=== PATIENT | female | born 1945 | race Hispanic/Latino ===

== ENCOUNTER 2024-08-03 10:32 | Inpatient (IN) | payer SELFPAY ==
[2024-08-03] MEDS ORDERED: CEFTRIAXONE 1000 MG/VIAL ONE (10:47)
[2024-08-03] MEDS ORDERED: NA CHLORIDE 0.9% 1,000 ML ONE (10:47)
[2024-08-03 11:13] LABS: Absolute Eosinophils 0.1 K/uL (0-0.5); Absolute Lymphocytes (CBC) 1.2 K/uL (0.7-4.9); Absolute Monocytes 0.6 K/uL (0.1-1.3); Absolute Neutrophil 6.9 K/uL (1.8-8.0); Basophils % 0.6 % (0-1.3); Eosinophils % 0.8 % (0-4.4); Hematocrit 40.5 % (36.0-45.0); Hemoglobin 12.7 g/dL (12.0-15.0); Lymphocytes % 13.1 % (15.3-44.8); MCH 24.6 pg (27.0-35.0); MCHC 31.4 g/dL (32.0-36.0); MCV 78.3 fL (80-100); Monocytes % 7.2 % (3.3-12.3); Neutrophils % 78.3 % (41.7-73.7); Platelets 233 thou/uL (152-406); RBC Red Blood Cell Count 5.17 M/uL (3.86-4.86); Red Cell Distribution Width 17.1 % (12.1-15.2)
[2024-08-03 11:19] LABS: PTT, Activated Partial Thromb 29.8 SECONDS (24.3-36.9); Protime INR 1.07
--- NOTE | 2024-08-03 11:19 | RAD REPORT ---
Procedure: Chest Single View HISTORY: Chest pain COMPARISON: none FINDINGS: Moderate bilateral pulmonary opacities. Small bilateral pleural effusions. Heart is markedly enlarged. Pacemaker leads in place. Post surgical changes involving the chest. IMPRESSION: Moderate CHF
[2024-08-03 11:30] LABS: Albumin 3.1 g/dL (3.4-5.0); Albumin/Globulin Ratio 0.8 (1.1-1.8); Bilirubin Total 0.5 mg/dL (0.2-1.0); Globulin 3.8 g/dL (2.3-3.5); Protein, Total 6.9 g/dL (6.4-8.2)
[2024-08-03 11:34] LABS: SARS-CoV-2 Antigen CONTROL BLUE LINE VIS/BG OK; SARS-CoV-2 Antigen Rapid Res Negative (Negative)
--- NOTE | 2024-08-03 11:52 | EDPHYS ---
Physician Documentation [facility] Name: Kallie Kurtz Age: 79 yrs Sex: Female : 1945 Arrival Date: 08/03/2024 Time: 10:32 Bed 3 Private MD: ED Physician Kirk Mejia HPI: 08/03 10:37 This 79 yrs old Female presents to ER via Unassigned with complaints of ec2 Shortness Of Breath. 10:37 Patient arrives today for evaluation of shortness of breath and feeling unwell. Patient ec2 been feeling short of breath ongoing for several days also with some lightheadedness. Patient with some occasional cough. History of hypertension, CHF, arrhythmia. Patient is on Lasix as well as digoxin however has not taken her medications in multiple weeks.. Historical: - Allergies: 10:40 No Known Allergies; bp - Home Meds: 10:40 lisinopril 20 mg Oral tablet 1 tab daily [Active]; amlodipine 5 mg tablet 1 tab daily bp [Active]; simvastatin 40 mg Oral tablet 1 tab daily [Active]; Lasix 20 mg Oral tablet 1 tab daily [Active]; digoxin 125 mcg (0.125 mg) Oral tablet 1 tab daily [Active]; simethicone 180 mg Oral capsule 1 cap daily [Active]; omeprazole 20 mg Oral capsule,delayed release (e.c.) daily [Active]; levothyroxine 112 mcg tablet 1 tab daily [Active]; - PMHx: 10:40 Hypothyroidism; Hypercholesterolemia; Hypertensive disorder; bp - PSHx: 10:40 Coronary artery bypass graft; bp - Immunization history:: Adult Immunizations up to date. - Infectious Disease History:: Denies. - Social history:: Smoking status: Patient reports the use of cigarette tobacco products, unknown amount. ROS: 10:37 Constitutional: as per hpi ec2 Exam: 10:37 Constitutional: GEN: NAD Head: atraumatic Eyes: EOMI Ears: External ears are ec2 normal. CV: regular rate, no significant lower extremity edema noted. LUNGS: no respiratory distress, no wheezes, no rales, no rhonchi ABD: non-distended SKIN: no evidence of rashes MSK: no evidence of trauma Vital Signs: 10:38 BP 150 / 90; Pulse 110; Resp 20; Temp 98; Pulse Ox 96% ; bp 11:47 BP 137 / 97; Pulse 106; Resp 16; Pulse Ox 97% ; bp 12:37 BP 155 / 97; Pulse 108; Resp 24; Pulse Ox 94% on 4 lpm NC; hb MDM: 10:35 Medical Screening Exam initiated ec2 10:37 Data reviewed: vital signs. ED course: Patient arrives today for evaluation of ec2 shortness of breath. Examination remarkable for tachycardic individual was otherwise in no acute respiratory distress. Will obtain lab work, EKG, chest x-ray empirically treat with ceftriaxone. Differential include processes such as volume overload, pneumonia, electrolyte disturbances, anemia. 11:01 ED course: EKG independently reviewed and interpreted by me, shows ventricularly paced ec2 rhythm with a rate of 106.. 11:42 ED course: CBC is reassuring. Metabolic profile with appropriate electrolytes. Coag ec2 profile is nonactionable. Chest x-ray shows moderate CHF. . 11:54 ED course: Will stop IV fluids, lactic acid within normal ranges, chest x-ray shows ec2 volume overload. Will admit for diuresis. Gave patient Lasix, discussed with hospitalist, pending admission.. 10 10:35 Order name: Blood Culture Adult (2) ec2 08/03 10:35 Order name: CBC with Diff; Complete Time: 11:42 ec2 08/03 10:35 Order name: CMP; Complete Time: 11:42 ec2 08/03 10:35 Order name: Lactate w/ 2H reflex if indic.; Complete Time: 11:51 ec2 08/03 10:35 Order name: Protime (+inr); Complete Time: 11:42 ec2 08/03 10:35 Order name: Ptt, Activated; Complete Time: 11:42 ec2 08/03 10:35 Order name: Influenza Screen (a \T\ B); Complete Time: 11:51 ec2 08/03 10:35 Order name: SARS RAPID; Complete Time: 11:42 ec2 08/03 11:52 Order name: BNP; Complete Time: 12:23 ec2 08/03 13:04 Order name: T4 Free EDMS 08/03 13:04 Order name: Thyroid Stimulating Hormone EDMS 08/03 13:04 Order name: Basic Metabolic Panel EDMS 08/03 13:04 Order name: Basic Metabolic Panel EDMS 08/03 13:04 Order name: Basic Metabolic Panel EDMS 08/03 13:04 Order name: Basic Metabolic Panel EDMS 08/03 13:04 Order name: Basic Metabolic Panel EDMS 08/03 13:04 Order name: Basic Metabolic Panel EDMS 08/03 13:04 Order name: Basic Metabolic Panel EDMS 08/03 13:04 Order name: Basic Metabolic Panel EDMS 08/03 13:04 Order name: CBC with Automated Diff EDMS 08/03 13:04 Order name: Lipid Profile EDMS 08/03 13:04 Order name: Lipid Profile EDMS 08/03 13:04 Order name: Magnesium EDMS 08/03 13:04 Order name: Magnesium EDMS 08/03 13:04 Order name: Magnesium EDMS 08/03 13:04 Order name: Magnesium EDMS 08/03 13:04 Order name: CBC with Automated Diff EDMS 08/03 13:04 Order name: CBC with Automated Diff EDMS 08/03 13:04 Order name: CBC with Automated Diff EDMS 08/03 13:04 Order name: CBC with Automated Diff EDMS 08/03 13:04 Order name: CBC with Automated Diff EDMS 08/03 13:04 Order name: CBC with Automated Diff EDMS 08/03 13:04 Order name: CBC with Automated Diff EDMS 08/03 13:04 Order name: Urinalysis w/ reflexes EDMS 08/03 13:05 Order name: Magnesium EDMS 08/03 13:05 Order name: Magnesium EDMS 08/03 13:05 Order name: Magnesium EDMS 08/03 13:05 Order name: Magnesium EDMS 08/03 13:05 Order name: Phosphorus EDMS 08/03 13:05 Order name: Phosphorus EDMS 08/03 13:05 Order name: Phosphorus EDMS 08/03 13:05 Order name: Phosphorus EDMS 08/03 13:05 Order name: Phosphorus EDMS 08/03 13:05 Order name: Phosphorus EDMS 08/03 13:05 Order name: Phosphorus EDMS 08/03 13:05 Order name: Phosphorus EDMS 08/03 13:05 Order name: Troponin High Sensitivity EDMS 08/03 13:05 Order name: Troponin High Sensitivity EDMS 08/03 13:05 Order name: Troponin High Sensitivity EDMS 08/03 13:05 Order name: Troponin High Sensitivity EDMS 08/03 10:35 Order name: Chest Single View XRAY; Complete Time: 11:42 ec2 08/03 13:04 Order name: Echo with Doppler EDMS 08/03 10:35 Order name: Accucheck; Complete Time: 10:57 ec2 08/03 10:35 Order name: Cardiac monitoring; Complete Time: 10:57 ec2 08/03 10:35 Order name: EKG - Nurse/Tech; Complete Time: 10:57 ec2 08/03 10:35 Order name: IV Saline Lock - Large Bore; Complete Time: 10:57 ec2 08/03 10:35 Order name: Labs collected and sent; Complete Time: 10:57 ec2 08/03 10:35 Order name: O2 Per Protocol; Complete Time: 10:57 ec2 08/03 10:35 Order name: O2 Sat Monitoring; Complete Time: 10:57 ec2 08/03 10:35 Order name: Vital Signs; Complete Time: 10:57 ec2 08/03 11:53 Order name: Misc. Order: stop IVF; Complete Time: 12:00 ec2 Administered Medications: 11:00 Drug: Rocephin IV 1 grams IV at calculated rate once; Given slow IV push per pharmacy bp instructions Route: IV; Rate: calculated rate; Site: right forearm; 12:00 Follow up: IV Status: Completed infusion bp 11:00 Drug: NS 0.9% IV 1000 ml IV at 1000 ml once; to be given as a bolus over 60 minutes bp Route: IV; Rate: 1000 ml; Site: right forearm; 12:00 Follow up: IV Status: Completed infusion bp 12:00 Drug: Furosemide IVP 40 mg IVP once; give over 2 minutes Route: IVP; Site: right bp forearm; 12:00 Follow up: Response: No adverse reaction bp Disposition Summary: 08/03/24 11:51 Hospitalization Ordered Notes: Hospitalization Status: Inpatient Admission ec2 Provider: Oracio Holloway ecJeremy Condition: Stable ec2 Problem: new ec2 Symptoms: have improved ec2 Bed/Room Type: Standard ec2 Location: Telemetry/MedSurg (Inpatient)(08/03/24 16:39) bd Room Assignment: [facility](08/03/24 16:39) bd Diagnosis - Heart failure, unspecified ec2 Forms: - Medication Reconciliation Form ec2 - SBAR form ec2 - Leadership Thank You Letter ec2 Signatures: Dispatcher [employer] EDMS Patti peters bd Eligio Perla, GALEN RN Kirk Young MD MD ec2 Corrections: (The following items were deleted from the chart) 10:36 10:36 BLOOD CULTURE*+BA.LAB.BRZ ordered. EDMS EDMS 10:36 10:36 CBC+H.LAB.BRZ ordered. EDMS EDMS 10:36 10:36 COMPREHENSIVE METABOLIC PANEL+C.LAB.BRZ ordered. EDMS EDMS 10:36 10:36 LACTATE+C.LAB.BRZ ordered. EDMS EDMS 10:36 10:36 PROTIME (+INR)+COAG.LAB.BRZ ordered. EDMS EDMS 10:36 10:36 PTT, ACTIVATED+COAG.LAB.BRZ ordered. EDMS EDMS 10:36 10:36 Influenza Screen (A \T\ B)+BA.LAB.BRZ ordered. EDMS EDMS 10:36 10:36 SARS-COV-2 Antigen Rapid+I.LAB.BRZ ordered. EDMS EDMS 10:36 10:36 Chest Single View+RAD.RAD.BRZ ordered. EDMS EDMS 14:03 11:51 Telemetry/MedSurg (Inpatient) ec2 bd 14:03 11:51 ec2 bd 16:39 14:03 BR ER HOLD bd bd 16:39 14:03 ERHOLD- bd bd
--- NOTE | 2024-08-03 11:52 | ER ---
Nurse's Notes [facility] Name: Kallie Kurtz Age: 79 yrs Sex: Female : 1945 Arrival Date: 08/03/2024 Time: 10:32 Bed 3 Private MD: Diagnosis: Heart failure, unspecified Presentation: 08/03 10:38 Chief complaint: EMS states: SENT FROM [facility] FOR SOB/CP. Coronavirus bp screen: At this time, the client does not indicate any symptoms associated with coronavirus-19. Ebola Screen: No symptoms or risks identified at this time. Initial Sepsis Screen: Does the patient meet any 2 criteria? HR > 90 bpm. No. Patient's initial sepsis screen is negative. Does the patient have a suspected source of infection? No. Patient's initial sepsis screen is negative. Risk Assessment: Do you want to hurt yourself or someone else? Patient reports no desire to harm self or others. Onset of symptoms is unknown. Care prior to arrival: Medication(s) given: ASA, 81 mg, x 1. 10:38 Method Of Arrival: EMS: [facility] bp 10:38 Acuity: DAVID 3 bp Triage Assessment: 10:40 General: Appears in no apparent distress. General: Behavior is cooperative, appropriate bp for age, anxious. Pain: Complains of pain in chest. EENT: No deficits noted. Neuro: No deficits noted. Cardiovascular: Rhythm is sinus tachycardia. Respiratory: Reports shortness of breath Breath sounds are clear bilaterally. Onset: The symptoms/episode began/occurred at an unknown time. the patient has mild shortness of breath. GI: No signs and/or symptoms were reported involving the gastrointestinal system. : No signs and/or symptoms were reported regarding the genitourinary system. Derm: No deficits noted. Musculoskeletal: No deficits noted. Historical: - Allergies: 10:40 No Known Allergies; bp - Home Meds: 10:40 lisinopril 20 mg Oral tablet 1 tab daily [Active]; amlodipine 5 mg tablet 1 tab daily bp [Active]; simvastatin 40 mg Oral tablet 1 tab daily [Active]; Lasix 20 mg Oral tablet 1 tab daily [Active]; digoxin 125 mcg (0.125 mg) Oral tablet 1 tab daily [Active]; simethicone 180 mg Oral capsule 1 cap daily [Active]; omeprazole 20 mg Oral capsule,delayed release (e.c.) daily [Active]; levothyroxine 112 mcg tablet 1 tab daily [Active]; - PMHx: 10:40 Hypothyroidism; Hypercholesterolemia; Hypertensive disorder; bp - PSHx: 10:40 Coronary artery bypass graft; bp - Immunization history:: Adult Immunizations up to date. - Infectious Disease History:: Denies. - Social history:: Smoking status: Patient reports the use of cigarette tobacco products, unknown amount. Screenin:00 [facility] ED Fall Risk Assessment (Adult) History of falling in the last 3 months, bp including since admission No falls in past 3 months (0 pts) Confusion or Disorientation No (0 pts) Intoxicated or Sedated No (0 pts) Impaired Gait No (0 pts) Mobility Assist Device Used No (0 pt) Altered Elimination No (0 pt) Score/Fall Risk Level 0 - 2 = Low Risk. Abuse screen: Denies threats or abuse. Denies injuries from another. Nutritional screening: No deficits noted. Tuberculosis screening: No symptoms or risk factors identified. Assessment: 11:30 General: Appears in no apparent distress. Behavior is cooperative, appropriate for age, bp anxious. 11:47 Reassessment: Patient appears in no apparent distress at this time. Patient is alert, bp oriented x 3, equal unlabored respirations, skin warm/dry/pink. Cardiovascular: Rhythm is Respiratory: Airway is patent Respiratory effort is even, unlabored. 12:36 Reassessment: Patient appears in no apparent distress at this time. Patient and/or hb family updated on plan of care and expected duration. Pain level reassessed. Patient is alert, oriented x 3, equal unlabored respirations, skin warm/dry/pink. Vital Signs: 10:38 BP 150 / 90; Pulse 110; Resp 20; Temp 98; Pulse Ox 96% ; bp 11:47 BP 137 / 97; Pulse 106; Resp 16; Pulse Ox 97% ; bp 12:37 BP 155 / 97; Pulse 108; Resp 24; Pulse Ox 94% on 4 lpm NC; hb ED Course: 10:34 Patient arrived in ED. ec2 10:35 Kirk Mejia MD is Attending Physician. ec2 10:36 Eligio Perla, GALEN is Primary Nurse. bp 10:39 Triage completed. bp 10:40 Arm band placed on. bp 11:00 Patient has correct armband on for positive identification. bp 11:00 Initial lab(s) drawn, by me, sent to lab. EKG done, by ED staff, reviewed by Kirk Mejia MD. Inserted saline lock: 22 gauge in right forearm, using aseptic technique. Blood collected. Flushed with 10 mL NS. 11:10 Chest Single View XRAY In Process Unspecified. EDMS 11:51 Oracio Holloway is Hospitalizing Provider. ec2 16:53 No provider procedures requiring assistance completed. Patient admitted, IV remains in bp place. Administered Medications: 11:00 Drug: Rocephin IV 1 grams IV at calculated rate once; Given slow IV push per pharmacy bp instructions Route: IV; Rate: calculated rate; Site: right forearm; 12:00 Follow up: IV Status: Completed infusion bp 11:00 Drug: NS 0.9% IV 1000 ml IV at 1000 ml once; to be given as a bolus over 60 minutes bp Route: IV; Rate: 1000 ml; Site: right forearm; 12:00 Follow up: IV Status: Completed infusion bp 12:00 Drug: Furosemide IVP 40 mg IVP once; give over 2 minutes Route: IVP; Site: right bp forearm; 12:00 Follow up: Response: No adverse reaction bp Outcome: 11:51 Decision to Hospitalize by Provider. ec2 16:52 Admitted to Tele accompanied by tech, family with patient, via wheelchair, room 207, bp with oxygen, with chart, Report called to FAX 16:52 Condition: stable 16:52 Instructed on the need for admit, 17:27 Patient left the ED. hb Signatures: Dispatcher [facility] Agnieszka Zendejas RN RN Eligio Cosme, RN Kirk Tolentino MD MD ec2 Corrections: (The following items were deleted from the chart) 12:38 12:37 BP 155 / 97; Pulse 108bpm; Resp 19bpm; Pulse Ox 92% 4 lpm Nasal Cannula; hb hb
--- NOTE | 2024-08-03 12:36 | P.HP ---
Certification for Inpatient Patient admitted to: Observation With expected LOS: <2 Midnights Patient will require the following post-hospital care: None Practitioner: I am a practitioner with admitting privileges, knowledge of patient current condition, hospital course, and medical plan of care. Services: Services provided to patient in accordance with Admission requirements found in Title 42 Section 412.3 of the Code of Federal Regulations Patient History Date of Service: 08/03/24 Reason for admission: Fluid volume overload History of Present Illness: Kallie Kurtz is a 79-year-old female with past medical history of hypothyroidism, hypercholesterolemia, hypertension, CAD status post CABG, CHF, arrhythmias, medication noncompliance who presents to the ED with chief complaint of feeling unwell with shortness of breath. She reports not taking her medication a few weeks, she currently is prescribed Lasix with digoxin. Laboratory evaluation with BNP 4868, COVID/FLU-negative Chest x-ray reports "Moderate bilateral pulmonary opacities. Small bilateral pleural effusions. Heart is markedly enlarged. Pacemaker leads in place. Post surgical changes involving the chest." Kallie will be admitted to hospitalist service for further evaluation and treatment of fluid volume overload. Allergies omeprazole Allergy (Verified 08/03/24 21:20) Nausea/Vomiting Home Medications: Amlodipine [Norvasc] 5 mg PO DAILY 08/03/24 Digoxin 125 mcg PO DAILY 08/03/24 Furosemide [Lasix] 20 mg PO DAILY 08/03/24 Levothyroxine [Synthroid] 112 mcg PO DAILY 08/03/24 Lisinopril [Zestril] 20 mg PO DAILY 08/03/24 Omeprazole 20 mg PO DAILY 08/03/24 Simethicone 180 mg PO DAILY 08/03/24 Simvastatin 40 mg PO DAILY 08/03/24 - Past Medical/Surgical History -: Hypothyroidism -: Hypercholesterolemia -: HTN -: CAD s/p CABG -: CHF -: medication noncompliance -: arrythmia -: CABG in [place] - Family History Family History: Reviewed- Non-Contributory - Social History Smoking Status: Never smoker Alcohol use: No CD- Drugs: No Review of Systems Respiratory: Shortness of Breath, SOB with Excertion Physical Examination - Physical Exam General: Alert, Oriented x3, Acute distress HEENT: Atraumatic, Normocephalic, PERRLA Neck: Supple, 2+ carotid pulse no bruit, JVD not distended Respiratory: Clear to auscultation bilaterally, Expiratory wheezes Cardiovascular: Normal pulses, Regular rate/rhythm, Normal S1 S2 Capillary refill: <2 Seconds Gastrointestinal: Normal bowel sounds Musculoskeletal: No clubbing Integumentary: No rashes Neurological: Normal speech, Normal tone - Studies Laboratory Data (last 24 hrs) 08/03/24 08/03/24 08/03/24 11:00 11:00 11:00 WBC 8.90 Hgb 12.7 Hct 40.5 Plt Count 233 PT 12.0 INR 1.07 APTT 29.8 Sodium 141 Potassium 4.0 BUN 21 H Creatinine 0.82 Glucose 184 H Total Bilirubin 0.5 AST 22 ALT 23 Alkaline Phosphatase 86 Microbiology Data (last 24 hrs): 08/03/24 11:00 Nasopharnyx Influenza Type A Antigen Screen - Final 08/03/24 11:00 Nasopharnyx Influenza Type B Antigen Screen - Final Assessment and Plan - Plan Assessment and plan Acute hypoxic respiratory distress secondary to fluid volume overload Mild Elevated troponin -Chest Xray reports "Moderate bilateral pulmonary opacities. Small bilateral pleural effusions. Heart is markedly enlarged. Pacemaker leads in place. Post surgical changes involving the chest." -BNP 4868 -Diuretics -Strict I's and O's, daily weights -Oxygen protocol -Magnesium pending Hyperglycemia -Serum glucose 184 -A1c in the AM Hypothyroidism Hypercholesterolemia Hypertension CAD status post CABG CHF Arrythmia -Continue home medication Medication noncompliance -Education concerning compliance DVT PPx Lovenox Full code LOS 2 days Discharge Plan: Home Plan to discharge in: 48 Hours - Advance Directives Does patient have a Living Will: No Does patient have a Durable POA for Healthcare: No
[2024-08-03] MEDS: FUROSEMIDE 40 MG/4 ML VIAL IV SCH (13:30)
[2024-08-03 14:34] VITALS: BMI 23.6
[2024-08-03] MEDS ORDERED: FUROSEMIDE 40 MG/4 ML VIAL ONE (15:34)
[2024-08-03] MEDS: ENOXAPARIN 40 MG/0.4 ML SQ SCH (18:22)
[2024-08-03] MEDS ORDERED: BISMUTH SUBSALICYL 262MG/15ML-240 ML BTL PO PRN (19:29)
[2024-08-03] MEDS: IPRATROPIUM BROM 0.5MG/2.5ML NEB SCH (20:13)
[2024-08-03] MEDS: ATORVASTATIN 20 MG TAB PO SCH (21:12)
[2024-08-03] MEDS: METOPROLOL TAR 25 MG TAB PO SCH (21:12)
[2024-08-04] MEDS: ACETAMINOPHEN 325 MG TABLET PO PRN (06:14)
[2024-08-04 06:35] LABS: Absolute Basophils 0.1 K/uL (0-0.5); Absolute Eosinophils 0.1 K/uL (0-0.5); Absolute Monocytes 0.9 K/uL (0.1-1.3); Absolute Neutrophil 6.8 K/uL (1.8-8.0); Basophils % 0.7 % (0-1.3); Hemoglobin 13.1 g/dL (12.0-15.0); Lymphocytes % 20.7 % (15.3-44.8); MCH 25.3 pg (27.0-35.0); MCHC 32.8 g/dL (32.0-36.0); MCV 77.1 fL (80-100); Monocytes % 9.1 % (3.3-12.3); Neutrophils % 68.5 % (41.7-73.7); Nucleated Red Blood Cells % 0.1 % (0-0); Platelets 263 thou/uL (152-406); RBC Red Blood Cell Count 5.19 M/uL (3.86-4.86); Red Cell Distribution Width 16.9 % (12.1-15.2)
[2024-08-04 07:07] LABS: Anion Gap 8.5 mEq/L (5.0-15.0); Phosphorus 2.8 mg/dL (2.5-4.9); Potassium 3.5 mEq/L (3.5-5.1); Troponin High Sensitivity 58.3 pg/mL (<58.9)
[2024-08-04 07:08] LABS: Thyroid Stimulating Hormone 16.6 uIU/mL (0.358-3.740)
[2024-08-04] MEDS: POTASSIUM CL SA 10 MEQ TAB PO SCH (08:56)
[2024-08-04] MEDS: lisinopriL 20 MG TAB PO SCH (08:56)
[2024-08-04] MEDS: PANTOPRAZOLE 40MG TABLET PO SCH (08:57)
[2024-08-04] MEDS: SIMETHICONE 180 MG PO SCH (08:57)
[2024-08-04] MEDS: FUROSEMIDE 40 MG/4 ML VIAL IV SCH (08:57)
[2024-08-04] MEDS: LEVOTHYROXINE SOD 0.112 MG TAB PO SCH (08:57)
[2024-08-04] MEDS: DIGOXIN 0.125 MG TABLET PO SCH (08:57)
[2024-08-04] MEDS: AMLODIPINE 5 MG TAB PO SCH (08:58)
[2024-08-04] MEDS ORDERED: HOME MED 1 EA UNK (Simvastatin [Simvastatin] 40 MG Tablet) PO SCH (09:00)
[2024-08-04] MEDS ORDERED: FUROSEMIDE 20 MG TABLET PO SCH (09:00)
[2024-08-04] MEDS ORDERED: HOME MED 1 EA UNK (Omeprazole [Omeprazole] 20 MG Tab.Rap.Dr) PO SCH (09:00)
[2024-08-04 09:24] VITALS: O2SAT 99
[2024-08-04 16:19] VITALS: BP 140/63; TEMP 97.1
--- NOTE | 2024-08-04 16:23 | P.DS ---
Admission Date: 08/03/24 Discharge Date: 08/04/24 Disposition: ROUTINE DISCHARGE Discharge Condition: GOOD Reason for Admission: Fluid volume overload Brief History of Present Illness: Diagnosis Acute hypoxic respiratory distress secondary to fluid volume overload Mild Elevated troponin Hyperglycemia Hypothyroidism Hypercholesterolemia Hypertension CAD status post CABG CHF Arrythmia Medication noncompliance HPI 08/03/2024 Kallie Kurtz is a 79-year-old female with past medical history of hypothyroidism, hypercholesterolemia, hypertension, CAD status post CABG, CHF, arrhythmias, medication noncompliance who presents to the ED with chief complaint of feeling unwell with shortness of breath. She reports not taking her medication a few weeks, she currently is prescribed Lasix with digoxin. Laboratory evaluation with BNP 4868, COVID/FLU-negative Chest x-ray reports "Moderate bilateral pulmonary opacities. Small bilateral pleural effusions. Heart is markedly enlarged. Pacemaker leads in place. Post surgical changes involving the chest." Kallie will be admitted to hospitalist service for further evaluation and treatment of fluid volume overload. Hospital Course: Kallie Kurtz is a pleasant 79 year old female with a past medical history significant for who was admitted to the [facility] on 08/03/24 for shortness of breath. Kallie presents with shortness of breath, Chest xray showing moderate bilateral pulmonary opacities and small bilateral pleural effusion. Lasix administered with appropriate UOP. She was returned to room air from 4 LNC. Mild troponin elevation that return to normal range, Cardiology consulted. ECHO showing severe MAC with mild regurgitation, mild tricuspid regurgitation, diastolic dysfunction. Cardiology has cleared her for discharge and she is on room air. She will need to follow up with cardiology and PCP. She has tolerated IV lasix, PO diet, and is ambulating independently. On 08/04/2024, Kallie was seen on morning rounds and deemed medically stable for discharge with family support. Kallie was discharged with instructions to schedule follow-up appointments with PCP. Kallie was provided prescriptions for potassium, Lasix, Lopressor. Physical Exam General: Alert and Oriented x3, NAD HEENT: Atraumatic, Normocephalic, PERRLA Neck: Supple, 2+ carotid pulse no bruit, JVD not distended Respiratory: Clear to auscultation bilaterally, on RA, non labored breathing Cardiovascular: Normal pulses, Regular rate/rhythm, Normal S1 S2 Capillary refill: <2 Seconds Gastrointestinal: Normal bowel sounds Musculoskeletal: No clubbing Integumentary: No rashes Neurological: Normal speech, Normal tone Vital Signs/Physical Exam: Temp Pulse Resp BP Pulse Ox 97.1 F 87 16 140/63 98 08/04/24 16:00 08/04/24 16:00 08/04/24 16:00 08/04/24 16:00 08/04/24 16:00 Laboratory Data at Discharge: WBC 9.90 thou/uL (4.3-10.9) 08/04/24 05:49 Hgb 13.1 g/dL (12.0-15.0) 08/04/24 05:49 Hct 40.0 % (36.0-45.0) 08/04/24 05:49 Plt Count 263 thou/uL (152-406) 08/04/24 05:49 PT 12.0 SECONDS (9.4-12.5) 08/03/24 11:00 INR 1.07 08/03/24 11:00 APTT 29.8 SECONDS (24.3-36.9) 08/03/24 11:00 Sodium 141 mEq/L (136-145) 08/04/24 05:49 Potassium 3.5 mEq/L (3.5-5.1) 08/04/24 05:49 BUN 17 mg/dL (7-18) 08/04/24 05:49 Creatinine 0.74 mg/dL (0.55-1.02) 08/04/24 05:49 Glucose 144 mg/dL (74-106) H 08/04/24 05:49 Phosphorus 2.8 mg/dL (2.5-4.9) 08/04/24 05:49 Magnesium 2.0 mg/dL (1.6-2.4) 08/04/24 05:49 Total Bilirubin 0.5 mg/dL (0.2-1.0) 08/03/24 11:00 AST 22 U/L (15-37) 08/03/24 11:00 ALT 23 U/L (13-56) 08/03/24 11:00 Alkaline Phosphatase 86 U/L (45-117) 08/03/24 11:00 Triglycerides 166 mg/dL (<150) H 08/04/24 05:49 Cholesterol 156 mg/dL (<200) 08/04/24 05:49 HDL Cholesterol 39 mg/dL (40-60) L 08/04/24 05:49 Cholesterol/HDL Ratio 4.00 08/04/24 05:49 Home Medications: Amlodipine [Norvasc*] 5 mg PO DAILY 08/03/24 Digoxin 125 mcg PO DAILY 08/03/24 Levothyroxine [Synthroid*] 112 mcg PO DAILY 08/03/24 Lisinopril [Zestril] 20 mg PO DAILY 08/03/24 Omeprazole 20 mg PO DAILY 08/03/24 Simethicone 180 mg PO DAILY 08/03/24 Simvastatin 40 mg PO DAILY 08/03/24 Atorvastatin Calcium [Lipitor*] 20 mg PO BEDTIME tab 08/04/24 Furosemide [Lasix*] 20 mg PO DAILY 7 Days #7 tab 08/04/24 Metoprolol Tartrate [Lopressor*] 25 mg PO BID 6AM 6PM 30 Days #60 tab 08/04/24 Potassium Oral Tab [Klor-Con 10 mEq Tab*] 10 meq PO DAILY 7 Days #7 tab 08/04/24 New Medications: Potassium Oral Tab [Klor-Con 10 mEq Tab*] 10 meq PO DAILY 7 Days #7 tab Furosemide [Lasix*] 20 mg PO DAILY 7 Days #7 tab Metoprolol Tartrate [Lopressor*] 25 mg PO BID 6AM 6PM 30 Days #60 tab Physician Discharge Instructions: 1. Please call and schedule a follow-up appointment with your PCP in 3-5 days - Please follow-up with your PCP for medication refills/adjustments -Monitor the need for Lasix and make adjustments from discharge dosing -Starting a new blood pressure medication called metoprolol. Please see PCP for adjustments to this medication. 2. Continue heart healthy diet 3. activity restrictions fall precautions 4. Return to the ED if symptoms worsen New medications Lasix 20 mg daily x 7 days Klor-Con 10 mEq daily x 7 days Metoprolol 25 mg twice a day Diet: AHA Activity: Fall precautions Followup: NONE,NONE [Primary Care Provider] -
--- NOTE | 2024-08-05 07:09 | ECHO ---
HEIGHT: 5 ft 3 in WEIGHT: 133 lb 0 oz DATE OF STUDY: 08/04/[address]: Laura Barboza NP 2-DIMENSIONAL: YES M.MODE: YES DOPPLER: YES COLOR FLOW: YES TDS: YES PORTABLE: YES DEFINITY: BUBBLE STUDY: DIAGNOSIS: VALVULAR FUNCTION CARDIAC HISTORY: CATHERIZATION: YES SURGERY: YES PROSTHETIC VALVE: NO PACEMAKER: YES MEASUREMENTS (cm) DIASTOLIC (NORMALS) SYSTOLIC (NORMALS) IVSd 1.4 (0.6-1.2) LA Diam 4.2 (1.9-4.0) LVEF 10% LVIDd 5.4 (3.5-5.7) LVIDs 4.8 (2.0-3.5) %FS LVPWd 1.4 (0.6-1.2) Ao Diam 3.0 (2.0-3.7) 2 DIMENSIONAL ASSESSMENT: RIGHT ATRIUM: NORMAL LEFT ATRIUM: SEVERELY DILATED RIGHT VENTRICLE: NORMAL, PACEMAKER LEFT VENTRICLE: SEVERELY DILATED TRICUSPID VALVE: MILD TRICUSPID REGURGITATION MITRAL VALVE: SEVERE MITRAL ANNULAR CALCIFICATION PULMONIC VALVE: NORMAL AORTIC VALVE: NORMAL PERICARDIAL EFFUSION: NONE AORTIC ROOT: NORMAL LEFT VENTRICULAR WALL MOTION: SEVERE GLOBAL HYPOKINESIS DOPPLER/COLOR FLOW: DIASTOLIC DYSFUNCTION COMMENTS: 1. SEVERELY DILATED LEFT VENTRICULAR CAVITY 2. SEVERELY REDUCED LEFT VENTRICULAR SYSTOLIC FUNCTION, EJECTION FRACTION 10%, SEVERE GLOBAL HYPOKINESIS 3. SEVERE MITRAL ANNULAR CALCIFICATION, MODERATE MITRAL STENOSIS, MODERATE MITRAL REGURGITATION 4. NORMAL FILLING PRESSURE TECHNOLOGIST: TONYA DUARTE
--- NOTE | 2024-08-05 11:58 | EKG ---
Test Date: 2024-08-03 Test Time: 10:55:02 Smash Hand: HB MEASUREMENT RESULTS: Intervals: Rate: 106 MD: 138 QRSD: 136 QT: 400 QTc: 531 [place]: P: 75 MD: 138 QRS: -61 T: 98 INTERPRETIVE STATEMENTS: Electronic ventricular pacemaker No previous ECG available for comparison Electronically Signed On 08-05-24 11:53:14 CDT by Dany Amato
== END 2024-08-04 16:46 | disposition home or self-care (01) | DRG 291 ==
LOC: ER 10:32 → ERHOLD 12:58 → 2ND 16:53
PROVIDERS: ADMIT Internal Medicine; ATTEND Internal Medicine
DX: I11.0 Hypertensive heart disease with heart failure (principal); I50.23 Acute on chronic systolic (congestive) heart failure; E03.9 Hypothyroidism, unspecified; E78.00 Pure hypercholesterolemia, unspecified; I25.10 Atherosclerotic heart disease of native coronary artery without angina pectoris; F17.210 Nicotine dependence, cigarettes, uncomplicated; R73.9 Hyperglycemia, unspecified; Z95.1 Presence of aortocoronary bypass graft; Z79.890 Hormone replacement therapy; Z79.899 Other long term (current) drug therapy; Z91.148 Patient's other noncompliance with medication regimen for other reason
CPT/HCPCS: 36415; 71045; 80048; 80053; 80061; 83036; 83605; 83735; 83880; 84100; 84439; 84443; 84484; 85025; 85610; 85730; 87040; 87804; 87811; 93005; 93306; 94640; 96365; 96375; 99285; J0696; J1650; J1940; J7030; J7644